=== PATIENT | female | born 1960 | race Two or more races ===

== ENCOUNTER 2016-06-13 15:12 | Emergency (ER) | payer OTHER ==
[2016-06-13] MEDS ORDERED: HYDROmorphone 1 MG/ML SYRINGE IM STA (16:40)
[2016-06-13] MEDS ORDERED: HYDROmorphone 1 MG/ML SYRINGE ONE (17:01)
[2016-06-13] MEDS ORDERED: ONDANSETRON ODT 4 MG TABLET TL STA (17:35)
[2016-06-13] MEDS ORDERED: ONDANSETRON ODT 4 MG TABLET ONE (17:45)
== END 2016-06-13 17:55 | disposition home or self-care (01) ==
DX: Q61.3 Polycystic kidney, unspecified (principal); N28.9 Disorder of kidney and ureter, unspecified; I10 Essential (primary) hypertension; Z87.891 Personal history of nicotine dependence
CPT/HCPCS: 36415; 74176; 80053; 81003; 83690; 85025; 96372; 99283; 99284; J1170; Q0162

== ENCOUNTER 2016-06-14 00:28 | Emergency (ER) | payer OTHER ==
[2016-06-14] MEDS ORDERED: ONDANSETRON 4 MG/2 ML VIAL IVP STA (02:10)
[2016-06-14] MEDS ORDERED: HYDROmorphone 1 MG/ML SYRINGE IVP STA (02:10)
[2016-06-14] MEDS ORDERED: SODIUM CHLORIDE 0.9% 1,000 ML IV STA (02:10)
[2016-06-14] MEDS ORDERED: HYDROmorphone 1 MG/ML SYRINGE ONE (02:22)
[2016-06-14] MEDS ORDERED: ONDANSETRON 4 MG/2 ML VIAL ONE (02:22)
== END 2016-06-14 04:45 | disposition home or self-care (01) ==
DX: N28.1 Cyst of kidney, acquired (principal); I10 Essential (primary) hypertension; Z87.891 Personal history of nicotine dependence
CPT/HCPCS: 85025; 96374; 96375; 99283; 99284; J1170

== ENCOUNTER 2016-09-25 08:58 | Emergency (ER) | payer OTHER ==
[2016-09-25] MEDS ORDERED: cefTRIAXone 1 GM in SODIUM CHLORIDE 0.9% MINIBAG 100 ML IV STA (11:07)
[2016-09-25] MEDS ORDERED: ONDANSETRON 4 MG/2 ML VIAL IVP STA (11:07)
[2016-09-25] MEDS ORDERED: HYDROmorphone 1 MG/ML SYRINGE IVP STA (11:07)
[2016-09-25] MEDS ORDERED: ONDANSETRON 4 MG/2 ML VIAL ONE (11:14)
[2016-09-25] MEDS ORDERED: cefTRIAXone 1 GM VIAL ONE (11:14)
[2016-09-25] MEDS ORDERED: HYDROmorphone 1 MG/ML SYRINGE ONE (11:14)
[2016-09-25] MEDS ORDERED: MAG HYDROX/AL HYDROX/SIMETH 30 ML UDC ONE (13:19)
[2016-09-25] MEDS ORDERED: LIDOCAINE VISCOUS 2% 15 ML UDC MM ONE (13:19)
[2016-09-25] MEDS ORDERED: PANTOPRAZOLE 40 MG TABLET ONE (13:19)
== END 2016-09-25 13:43 | disposition home or self-care (01) ==
DX: N12 Tubulo-interstitial nephritis, not specified as acute or chronic (principal); Q61.3 Polycystic kidney, unspecified; I10 Essential (primary) hypertension; Z87.891 Personal history of nicotine dependence
CPT/HCPCS: 36415; 80053; 81001; 83690; 85025; 87086; 96374; 96375; 99284; A9270; J1170

== ENCOUNTER 2018-03-20 17:12 | Emergency (ER) | payer OTHER ==
[2018-03-20 17:24] VITALS: BP 172/121
--- NOTE | 2018-03-20 18:39 | ED Physician Documentation ---
History of Present Illness - Stated complaint Stated Complaint: RT EYE TRAUMA/SENT PER DR - Chief complaint Chief Complaint: General - History obtained from History obtained from: Patient, Family - History of Present Illness Timing: Today Pain level max: 4 Pain level now: 4 Improved by: Nothing Worsened by: Nothing - Additonal information Additional information: Patient is a 57-year-old female who is approximately 4 months status post a right-sided craniotomy for meningioma removal. Today noticed bleeding to the right eye. Also swelling to the right side of the face and pressure behind the eye. She called her neurosurgeon who recommended she come here for evaluation. No trauma. No recent illness. No rhinorrhea or congestion. Review of Systems Ten Systems: 10 systems reviewed and negative Constitutional: denies: Fever, Chills Ears: denies: Ear pain Nose: reports: Rhinorrhea / runny nose, Congestion Throat: denies: Sore throat Cardiac: denies: Chest pain / pressure Respiratory: denies: Cough GI: denies: Abdominal Pain, Nausea, Vomiting, Diarrhea : denies: Dysuria Skin: denies: Rash Musculoskeletal: denies: Neck pain, Back pain PD PAST MEDICAL HISTORY - Past Medical History Cardiovascular: Hypertension Respiratory: None Endocrine/Autoimmune: None GI: None REGISTERED MIDWIFE: None : None HEENT: None Psych: None Musculoskeletal: None Derm: None - Past Surgical History Past Surgical History: Yes /REGISTERED MIDWIFE: section - Present Medications Home Medications: Ambulatory Orders Medication Instructions Recorded Confirmed Losartan [Cozaar] 100 mg PO ONCE 01/27/13 09/25/16 Amitriptyline [Elavil] 10 mg PO QPM 03/20/18 03/20/18 - Allergies Allergies/Adverse Reactions: Allergies Allergy/AdvReac Type Severity Reaction Status Date / Time hydrocodone bitartrate * Allergy Rash Verified 09/25/16 09:04 [From Vicodin] ibuprofen [From Motrin] Allergy Nausea Verified 09/25/16 09:04 meperidine HCl * Allergy vomiting Verified 09/25/16 09:04 [From Demerol] morphine Allergy Itching Verified 09/25/16 09:04 naproxen Allergy numbess to Verified 09/25/16 09:04 mouth tramadol Allergy numbness Verified 03/20/18 17:24 to face - Social History Does the pt smoke?: No Smoking Status: Former smoker Does the pt drink ETOH?: Yes Does the pt have substance abuse?: Yes - Immunizations Immunizations are current?: Yes - POLST Patient has POLST: No PD ED PE NORMAL - Vitals Vital signs reviewed: Yes - General General: Alert and oriented X 3, No acute distress - HEENT HEENT: PERRL, EOMI, Moist mucous membranes, Other (small OD lateral subconju nctival hemorrhage) - Neck Neck: Supple, no meningeal sign - Cardiac Cardiac: RRR, Strong equal pulses - Respiratory Respiratory: No respiratory distress, Clear bilaterally - Abdomen Abdomen: Soft, Non tender, Non distended - Derm Derm: Warm and dry - Neuro Neuro: Alert and oriented X 3, No motor deficit, No sensory deficit, Normal speech Results - Vitals Vitals: Vital Signs - 24 hr 03/20/18 17:20 Temperature 36.1 C L Heart Rate 72 Respiratory 20 Rate Blood Pressure 172/121 H O2 Saturation 100 Oxygen O2 Source Room air PD MEDICAL DECISION MAKING - ED course Complexity details: re-evaluated patient, considered differential, d/w patient, d/w family, d/w medical cost consultant ED course: 1839 - Dr. Alfonso La neurosurgery at [facility] and recommends call office in AM to set up conventional angiography. No labs or imaging needed tonight. Patient is comfortable with this plan and will follow up with her neurosurgeon tomorrow. No neurological deficits here. No vision changes. Patient and family counseled regarding signs and symptoms for which I believe and urgent re-evaluation would be necessary. Patient with good understanding of and agreement to plan and is comfortable going home at this time This document was made in part using voice recognition software. While efforts are made to proofread this document, sound alike and grammatical errors may occur. Departure - Departure Disposition: 01 Home, Self Care Clinical Impression: Subconjunctival hemorrhage Qualifiers: Laterality: right Qualified Code(s): H11.31 - Conjunctival hemorrhage, right eye Condition: Good Instructions: ED Eye Injury Subconj Hemorrhage Follow-Up: IRA VILLASEÑOR MD [Primary Care Provider] - Within 1 week Shaka Reaves MD [Physician No Access] - (call tomorrow to ask about scheduling conventional angiography with Dr. Reaves) Comments: I spoke with Dr. Abhinav norton and he would like you to call the office tomorrow to schedule conventional angiography with Dr. Reaves. There is a chance that this may resolve and you may not need that test. Return sooner if you worsen. Discharge Date/Time: 03/20/18 19:05
== END 2018-03-20 19:05 | disposition home or self-care (01) ==
LOC: ED 17:12
DX: H11.31 Conjunctival hemorrhage, right eye (principal); I10 Essential (primary) hypertension; Z98.890 Other specified postprocedural states; Z87.891 Personal history of nicotine dependence
CPT/HCPCS: 80053; 83690; 85025; 85610; 85651; 85730; 86140; 99282; 99283

== ENCOUNTER 2021-04-17 09:00 | Outpatient (CLI) | payer OTHER ==
[2021-04-17 09:25] LABS: HCT - HEMATOCRIT 44.8 % (37.0-47.0); HGB - HEMOGLOBIN 14.7 g/dL (12.0-16.0); MEAN CORPUSCULAR HEMOGLOBIN 30.6 pg (27.0-31.0); MEAN CORPUSCULAR HGB CONC 32.8 g/dL (32.0-36.0); MEAN CORPUSCULAR VOLUME 93.1 fL (81.0-99.0); MEAN PLATELET VOLUME 9.9 fL (7.9-10.8); RED BLOOD COUNT 4.81 10^6/uL (4.20-5.40); RED CELL DISTRIBUTION WIDTH 13.5 % (12.0-15.0); WHITE BLOOD COUNT 8.8 x10^3/uL (4.8-10.8)
[2021-04-17 09:34] LABS: CALCIUM 9.7 mg/dL (8.5-10.3); POTASSIUM 4.7 mmol/L (3.5-5.0)
[2021-04-17 10:23] LABS: CREATININE,URINE 41.1 mg/dL; TOTAL PROTEIN,URINE TIMED < 6 mg/dL
== END 2021-04-17 09:01 | disposition home or self-care (01) ==
LOC: LAB 09:00
PROVIDERS: ATTEND Internal Medicine Nephrology
DX: N05.9 Unspecified nephritic syndrome with unspecified morphologic changes (principal); D70.9 Neutropenia, unspecified; D63.1 Anemia in chronic kidney disease; R80.9 Proteinuria, unspecified
CPT/HCPCS: 36415; 80048; 82570; 84156; 85027

== ENCOUNTER 2021-05-04 12:11 | Outpatient (CLI) | payer OTHER ==
[2021-05-04 12:51] LABS: CREATININE 0.9 mg/dL (0.4-1.0)
== END 2021-05-04 12:12 | disposition home or self-care (01) ==
LOC: LAB 12:11
PROVIDERS: ATTEND Internal Medicine Nephrology
DX: N05.9 Unspecified nephritic syndrome with unspecified morphologic changes (principal)
CPT/HCPCS: 36415; 82565